=== PATIENT | female | born 1950 | race Caucasian/White ===

== ENCOUNTER 2022-05-11 21:52 | Emergency (ER) | payer OTHER ==
[~2022-05-11] VITALS: Ht 154.9 cm; Wt 85.0 kg
[2022-05-12 02:25] VITALS: BP 145/89
== END 2022-05-12 02:38 | disposition home or self-care (01) ==
LOC: EMS 21:52
DX: F41.9 Anxiety disorder, unspecified (principal); I10 Essential (primary) hypertension
CPT/HCPCS: 99285; Z7502